=== PATIENT | male | born 1990 | race African-American/Black ===

== ENCOUNTER 2016-10-21 08:59 | Emergency (ER) | payer BC, OTHER ==
[~2016-10-21] VITALS: Ht 185.4 cm; Wt 84.1 kg
[2016-10-21 09:07] VITALS: Ht 185.4 cm; Wt 84.1 kg
[2016-10-21] MEDS ORDERED: PROPARACAINE HCL 0.5% OP SOLN 15 ML BTL ONE (09:12)
--- NOTE | 2016-10-21 10:08 | EMERGENCY ROOM VISIT NOTE ---
History Report prepared by Scott: Vaughn Mancia Under the Supervision of: Dr. Paulo Nevarez M.D. First contact with patient: 09:14 Chief Complaint: EYE ASSESSMENT Stated Complaint: SWOLLEN,PAINFUL W/HEADACHES,LIGHT SENSITIVITY History of Present Illness The patient is a 26 year old male who presents to the Emergency Room with complaints of persistent right eye pain since yesterday. The pain is sharp in nature and is worse with movement of the eye and when he looks directly into light. Looking downwards is more painful than looking up in regards to eye movement. The patient denies any recent injury or trauma to the eye. He cannot recall what he was doing when the pain started. He has glasses for an astigmatism but does not usually wear them. The patient does not follow up with an eye doctor other than to occasionally have his acuity checked. The patient denies any known medical problems. Source of History: patient Onset: yesterday Position: eye (right) Quality: sharp Timing: other (persistent) Modifying Factors (Worsening): movement, other (light) Review of Systems See HPI for pertinent positives & negatives. A total of 10 systems reviewed and were otherwise negative. Past Medical & Surgical Medical Problems: (1) Alcohol intoxication (2) Altered mental status (3) No Known Active Medical Problems Family History Cancer Diabetes mellitus Hypertension Social History Smoking Status: Former Smoker Alcohol Use: occasionally Housing Status: lives with roommate Current/Historical Medications No Active Prescriptions or Reported Meds Allergies Coded Allergies: No Known Allergies (Unverified , 10/21/16) Physical Exam Vital Signs Date Time Temp Pulse Resp B/P Pulse Ox O2 Delivery O2 Flow Rate FiO2 10/21/16 12:21 36.8 59 16 129/77 98 10/21/16 11:12 59 16 129/77 10/21/16 09:07 36.8 67 16 127/84 98 Room Air Right Eye Acuity: 20/70 WITHOUT CORRECTION Left Eye Acuity: 20/30 WITHOUT CORRECTION Physical Exam GENERAL: Patient is a healthy-appearing well-nourished HEAD: Normocephalic atraumatic EYES: Ocular movements intact pupils equal and react to light. See slit lamp examination. OROPHARYNX mucous membranes are moist no exudates present no erythema or edema present NECK: Supple no nuchal rigidity CHEST: Good equal expansion LUNGS: Clear and equal to auscultation CARDIAC: Normal S1 and S2 ABDOMEN: Soft nontender no guarding BACK: No CVA tenderness EXTREMITIES: No pain upon palpation normal muscle strength in all groups no clubbing cyanosis or edema NEURO: Patient is following commands is answering questions appropriately. Alert and oriented x3 Cranial Nerves 2-12 grossly intact Medical Decision & Procedures Medications Administered Medications (Trade) Dose Ordered Sig/Stanford Route Start Time Stop Time Status Last Admin Dose Admin Proparacaine HCl (Alcaine 0.5% Oph Soln) 225 drops STK-MED ONCE .ROUTE 10/21/16 09:12 10/21/16 09:16 DC 10/21/16 09:12 225 DROPS Oxycodone/ Acetaminophen (Percocet 5-325mg Tab) 2 tab NOW STAT PO 10/21/16 10:53 10/21/16 10:54 DC 10/21/16 11:10 2 TAB Procedure Slit Lamp Examination Indication: right eye pain. The right eye was prepped with topical proparacaine. Slit lamp examination was performed in the standard fashion. Cornea appeared normal. Anterior chamber clear. Scleral injection is not present. No discharge present. Fluorescein examination performed and revealed no scratches. No foreign bodies noted. Negative Vanessa sign. The patient tolerated the procedure well without complication. ED Course 0941: Past medical records reviewed. The patient was evaluated in room B4b. A complete history and physical examination was performed. 0950: Slit lamp examination performed. Please see procedural note above. 1053: Percocet 5/325 mg PO homepack. 1100: Reassessed the patient. Discussed the discharge instructions with him. He will follow up with Dr. Crandall. He verbalized understanding. The patient is ready for discharge. Medical Decision Differential: Iritis, uveitis, periorbital cellulitis, corneal abrasion, corneal ulcer. This is a 26-year-old male who presents emergency department complaining of eye pain. The patient has a normal examination on exam however he is complaining of a large amount of pain. Based on this finding he was sent to optho's office. He was given Percocet in the emergency department. Repeat examination revealed improvement the patient's symptoms. Impression Primary Impression: Pain, eye, right Scribe Attestation The scribe's documentation has been prepared under my direction and personally reviewed by me in its entirety. I confirm that the note above accurately reflects all work, treatment, procedures, and medical decision making performed by me. Departure Information Dispostion Home / Self-Care Prescriptions No Active Prescriptions or Reported Meds Referrals No Doctor, Assigned (PCP) Forms HOME CARE DOCUMENTATION FORM, IMPORTANT VISIT INFORMATION, WORK / SCHOOL INSTRUCTIONS Patient Instructions My [facility] Additional Instructions Go directly to DR Crandall's office You have been examined and treated today on an emergency basis only. This is not a substitute for, or an effort to provide, complete comprehensive medical care. It is impossible to recognize and treat all injuries or illnesses in a single emergency department visit. It is therefore important that you follow up closely with your PCP. Call as soon as possible for an appointment. Thank you for your time and consideration. I look forward to speaking with you again soon. Please don't hesitate to call us if you have any questions.
[2016-10-21] MEDS ORDERED: OXYCODONE/ACETAMINOPHEN 5-325 TAB PO STA (10:53)
[2016-10-21 12:21] VITALS: BP 129/77; PULSE 59; TEMP 36.8; O2SAT 98
== END 2016-10-21 12:23 | disposition home or self-care (01) ==
LOC: C.EDB 09:01
DX: H57.11 Ocular pain, right eye (principal); Z87.891 Personal history of nicotine dependence; Z83.3 Family history of diabetes mellitus; Z82.49 Family history of ischemic heart disease and other diseases of the circulatory system

== ENCOUNTER 2016-11-26 19:27 | Emergency (ER) | payer OTHER ==
[~2016-11-26] VITALS: Ht 185.4 cm; Wt 80.8 kg
[2016-11-26 19:31] VITALS: TEMP 36.8; O2SAT 96; Ht 185.4 cm; Wt 80.8 kg
[2016-11-26] MEDS ORDERED: HYDR-5688 PO (20:44)
[2016-11-26] MEDS ORDERED: HYDR25SU6 PR (20:46)
[2016-11-26] MEDS ORDERED: OXYCODONE HCL IR 5 MG TAB (IMMEDIATE RELEASE) PO STA (20:50)
--- NOTE | 2016-11-26 20:52 | EMERGENCY ROOM VISIT NOTE ---
History Report prepared by Scott: Arvind Smith Under the Supervision of: Dr. Juan Lloyd M.D. First contact with patient: 20:40 Chief Complaint: RECTAL BLEEDING Stated Complaint: RECTAL BLEEDING,SEVERE PAIN,BURNING History of Present Illness The patient is a 26 year old male who presents to the Emergency Room with complaints of persistent rectal bleeding that started 5 days ago. Associated symptoms include rectal pain and burning. He rates his discomfort an 8/10 in intensity. Patient also notes that he has had a cough over the past week. The patient was evaluated by his PCP 2 days ago where he was told he likely had thrombosed internal hemorrhoids. PCP was unable to visual these due to rectal swelling, per patient. He was prescribed [place] for pain at this time and told to come in to the ED if pain and bleeding worsens. Patient denies abdominal pain , shortness of breath, constipation, diarrhea, or any additional associated symptoms. Source of History: patient Onset: 5 days ago Position: other (Rectum) Symptom Intensity: 8/10 Timing: other (Persistent) Modifying Factors (Relieving): other (None) Associated Symptoms: No SOB, No abdominal pain, No diarrhea Note: Additional associated symptoms include rectal pain and burning. Review of Systems See HPI for pertinent positives & negatives. A total of 10 systems reviewed and were otherwise negative. Past Medical & Surgical Medical Problems: (1) Alcohol intoxication (2) Altered mental status (3) No Known Active Medical Problems Family History Cancer Diabetes mellitus Hypertension Social History Smoking Status: Current Some Day Smoker Alcohol Use: occasionally Housing Status: lives with roommate Current/Historical Medications Scheduled Docusate Sodium (Colace), 1 CAP PO BID Hydrocortisone Acetate (Rectal (Anucort-Hc), 25 MG MI TID Scheduled PRN Hydrocodone/Acetaminophen 5MG/325MG ([place] 5MG/325MG), 1 TAB PO TID PRN for Pain Oxycodone Immediate Rel Tab (Roxicodone Ir), 1-2 TAB PO Q4H PRN for Severe Pain Allergies Coded Allergies: No Known Allergies (Unverified , 10/21/16) Physical Exam Vital Signs Date Time Temp Pulse Resp B/P Pulse Ox O2 Delivery O2 Flow Rate FiO2 11/26/16 22:56 71 15 125/70 11/26/16 19:31 36.8 108 18 148/78 96 Room Air Physical Exam GENERAL: Patient is uncomfortable appearing but in no acute distress. HEENT: No acute trauma, normocephalic atraumatic, mucous membranes moist, no nasal congestion, no scleral icterus. NECK: No stridor, no adenopathy, no meningismus, trachea is midline. LUNGS: No dyspnea. Clear to auscultation and equal bilaterally. No wheeze, no rhonchi. HEART: Regular rate and rhythm. No murmurs, rubs, gallops appreciated. ABDOMEN: Soft, nontender, bowel sounds positive, no masses appreciated, no peritonitis. BACK: No midline tenderness, no CVA tenderness RECTAL: Large thrombosed hemorrhoid, tender to palpation, oozing blood from anterior aspect. EXTREMITIES: Normal motion all extremities, no cyanosis, no edema. NEUROLOGIC: Alert and oriented, no acute motor or sensory deficits, no focal weakness, cranial nerves grossly intact. SKIN: No rash, no jaundice, no diaphoresis. Medical Decision & Procedures ER Provider Diagnostic Interpretation: X ray results are stated below per my interpretation and the radiologist's interpretation. CHEST ONE VIEW PORTABLE HISTORY: persistent cough COMPARISON: Chest 03/25/2016. FINDINGS: The lungs are clear. Cardiac silhouette is normal in size. No pleural effusions. No pneumothorax. IMPRESSION: No acute process. Electronically signed by: [place] Kendrick M.D. 11/26/2016 9:29 PM Dictated Date/Time: 11/26/2016 9:27 PM Medications Administered Medications (Trade) Dose Ordered Sig/Stanford Route Start Time Stop Time Status Last Admin Dose Admin Oxycodone HCl (Roxicodone Immediate Rel Tab) 5 mg NOW STAT PO 11/26/16 20:50 11/26/16 20:52 DC 11/26/16 21:06 5 MG Nitroglycerin (Nitroglycerin 2% Oint) 1 inch NOW ONCE EXT 11/26/16 21:00 11/26/16 21:01 DC 11/26/16 21:06 1 INCH Lactulose (Chronulac Syrup) 30 gm NOW STAT PO 11/26/16 22:22 11/26/16 22:23 DC 11/26/16 22:55 30 GM Docusate Sodium (coLACE CAP) 100 mg NOW ONCE PO 11/26/16 22:30 11/26/16 22:31 DC 11/26/16 22:55 100 MG ED Course 2040: The patient was evaluated in room A9. A complete history and physical exam was performed. 2049: Ordered Oxycodone HCL 5 mg PO. 2099: Ordered Nitroglycerin 1 inch EXT. 2213: I reevaluated the patient. He is feeling slightly better. 2220: The patient requests help getting set up with general surgery. He states he is feeling a little better at this time. 2221: Ordered Lactulose 30 gm PO. 2225: I discussed the patient's case with case management. They will work to set the patient up with [facility] General surgery. 2230: Ordered Docusate Sodium 100 mg PO. 224: Reevaluated the patient. Discussed results and discharge instructions: He verbalized understanding and agreement. The patient is ready for discharge. Medical Decision Differential: Diverticulitis, AVM, Coagulopathy, Colitis, Malignancy, Upper GI bleed, Fissure, Hemorrhoids, amongst other pathologies entertained. 26 yr old male with large thrombosed hemorrhoid with some mild bleeding from it. He is not septic nor hypotensive. No evidence of surgical abdomen. Persistent cough though notes somewhat improved thus CXR done without any acute findings. 4-5 days of hemorrhoid and I do not feel that opening it would be very helpful. Will defer to surgery and have requested case management help set this up. No indication for emergent OR. Clearly will need pain meds. Continue sitz baths. Stressed need for loose stools thus colace. Impression Primary Impression: Thrombosed external hemorrhoid Scribe Attestation The scribe's documentation has been prepared under my direction and personally reviewed by me in its entirety. I confirm that the note above accurately reflects all work, treatment, procedures, and medical decision making performed by me. Departure Information Dispostion Home / Self-Care Prescriptions Docusate Sodium (COLACE) 100 Mg Cap 1 CAP PO BID for 15 Days, #30 CAP Prov: Juan Lloyd M.D. 11/26/16 Oxycodone Immediate Rel Tab (ROXICODONE IR) 5 Mg Tab 1-2 TAB PO Q4H Y for Severe Pain, #12 TAB Prov: Juan Lloyd M.D. 11/26/16 Referrals Sahil Katz M.D. (PCP) Miguelito Pat M.D. Forms HOME CARE DOCUMENTATION FORM, IMPORTANT VISIT INFORMATION, WORK / SCHOOL INSTRUCTIONS Patient Instructions Hemorrhoids Thrombosed, My [facility] [address] Additional Instructions You will need to follow up with General Surgery for further evaluation of your hemorrhoids. You have received a narcotic pain medication prescription. These medications may cause drowsiness and should not be used with other sedative medications. Do not drive, drink alcohol, perform dangerous activities, nor make important decisions after taking these medications. rodent exterminator use or inappropriate use may lead to addiction.
[2016-11-26] MEDS ORDERED: NITROGLYCERIN OINT 2% 1GM PACKET EXT ONE (21:00)
--- NOTE | 2016-11-26 21:31 | DIAGNOSTIC IMAGING REPORT ---
CHEST ONE VIEW PORTABLE HISTORY: persistent cough COMPARISON: Chest 03/25/2016. FINDINGS: The lungs are clear. Cardiac silhouette is normal in size. No pleural effusions. No pneumothorax. IMPRESSION: No acute process. Electronically signed by: [place] Kendrick M.D. 11/26/2016 9:29 PM Dictated Date/Time: 11/26/2016 9:27 PM
[2016-11-26] MEDS ORDERED: LACTULOSE SYRUP 20 GM/30 ML UDC PO STA (22:22)
[2016-11-26] MEDS ORDERED: DOCU-94 PO (22:24)
[2016-11-26] MEDS ORDERED: OXYC1TAB3 PO (22:24)
[2016-11-26] MEDS ORDERED: DOCUSATE SODIUM 100 MG CAP PO ONE (22:30)
[2016-11-26 22:56] VITALS: BP 125/70; PULSE 71
== END 2016-11-26 23:00 | disposition home or self-care (01) ==
LOC: C.EDB 19:28 → C.EDA 23:00
DX: K64.5 Perianal venous thrombosis (principal); Z82.49 Family history of ischemic heart disease and other diseases of the circulatory system; Z83.3 Family history of diabetes mellitus; F17.200 Nicotine dependence, unspecified, uncomplicated

== ENCOUNTER 2017-04-12 10:48 | Emergency (ER) | payer OTHER ==
[~2017-04-12] VITALS: Ht 185.4 cm; Wt 70.4 kg
[~2017-04-12 10:48] MED LIST: HYDR-5688 PO; HYDR25SU6 PR; OXYC1TAB3 PO
[2017-04-12 11:03] VITALS: PULSE 111; TEMP 36.9; O2SAT 96; Ht 185.4 cm; Wt 70.4 kg
[2017-04-12] MEDS ORDERED: XYLOCAINE 1%/SOD BICARB 20 ML VIAL INFIL ONE (11:45)
--- NOTE | 2017-04-12 11:47 | DIAGNOSTIC IMAGING REPORT ---
LEFT ELBOW MIN 3 VIEWS ROUTINE CLINICAL HISTORY: fell last night, laceration prox ulna COMPARISON: None. DISCUSSION: The bones and joint spaces appear intact. There is no evidence of fracture, dislocation or bony disease. There is no evidence for soft tissue swelling. IMPRESSION: Negative study. The above report was generated using voice recognition software. It may contain grammatical, syntax or spelling errors. Electronically signed by: Lonnie Fleming M.D. 04/12/2017 11:45 AM Dictated Date/Time: 04/12/2017 11:45 AM
[2017-04-12] MEDS ORDERED: CEPH500C PO (12:15)
[2017-04-12] MEDS ORDERED: ACETAMINOPHEN 500 MG TAB PO STA (12:17)
[2017-04-12 12:26] VITALS: BP 118/90
--- NOTE | 2017-04-12 17:57 | EMERGENCY ROOM VISIT NOTE ---
ED Visit Note First contact with patient: 11:16 Chief complaint: Left elbow laceration HPI: This 26-year-old -[place] male presents for evaluation of a laceration on his left elbow that occurred last night. The patient states he believes he fell and landed on the elbow. He was drinking last night. He is not very sure of the circumstances. He is not sure exactly when he fell on. He did not seek treatment last night. Bleeding was controlled with pressure. He denies any numbness, tingling, or loss of motion. Patient states he went and played flag football this morning. He realized how bad the cut was and came in for treatment. He states there is pain over the elbow. No other complaints. Tetanus is believed to be up-to-date. Pain is 6/10. Right-hand dominant. Supplemental sheet was reviewed and signed. Previous surgeries: None Medical history: Benign Current Medications: None Allergies: NKDA Tetanus: Within 10 years Family History: Noncontributory. Parents are living. Social History: Employed. Lives with his parents. Positive tobacco use, positive EtOH use. REVIEW OF SYSTEM: HEENT: No dizziness, visual problems, hearing loss, or tinnitus. There is no difficulty swallowing and no oral lesions are present. PULMONARY: No cough, shortness of breath, sputum production or hemoptysis. CARDIOVASCULAR: No chest pain, palpitations, shortness of breath or peripheral edema. GASTROINTESTINAL: No diarrhea, constipation, nausea, vomiting, or abdominal pain. GENITOURINARY: No dysuria, frequency, urgency or nocturia. NEUROLOGIC: No weakness, muscle tenderness, epilepsy or history of neurological problems. MUSCULOSKELETAL: No history of joint tenderness/swelling. No history of arthritis or arthralgias. SKIN: No rashes or lesions. PSYCHIATRIC: No history of depression or mental illness. ENDOCRINE: No history of diabetes, thyroid disorders, or abnormal hair growth. Physical Exam: Vitals: Afebrile. Reviewed and filed in patient's chart General: Well-developed, well-nourished, young -[place] male, in no acute distress. Obvious discomfort. He is sitting on the bed. Alert and oriented. Skin: Warm and dry with good turgor. No rashes. No ecchymosis or erythema. Mild edema present over the proximal ulna, just distal to the olecranon. He has a 2.5 cm laceration present. It is linear. No visible foreign material. The patient is not diaphoretic. No abrasions. Musculoskeletal: Full flexion and extension of the elbow. Strength is 5/5 for resisted motion. Full supination and pronation. No defect in the triceps tendon. Neurologic: Gross sensation is intact across the forearm and hand by soft touch. Peripheral pulses are 2+. Data: Radiographic imaging obtained today of the elbow was reviewed by me and read by radiology. No evidence for fracture. No elevation of fat pad. No visible foreign body. Impression: Left elbow 2.5 cm laceration Procedure: Informed oral consent was obtained for repair. Left elbow was prepped with Betadine and draped with a sterile towel. Area was anesthetized using 4 mL 1% plain buffered lidocaine in a direct infiltration. Self- retaining retractor's were used. Thorough inspection was performed. Wound was probed. There is no evidence for retained foreign body. He does appear to have violated the bursa. Wound was irrigated copiously using Betadine diluted with normal sterile saline under jet spray lavage. Wound was closed using 4-0 nylon. Excellent wound edge approximation was achieved. Hemostasis was achieved. Plan: Patient was educated regarding today's findings. Conservative care measures were discussed. Cleanse the wound daily with soap and water and reapply a small amount of bacitracin. Ice and elevate intermittently as needed for discomfort. Tylenol and ibuprofen every 6 hours as needed for pain. Wound care handout was provided. Sutures out in 14 days. He may shower. No sports until sutures have been removed. Avoid soaking or swimming for two weeks. Return to the ER for any acute changes or signs of infection. He was provided a prescription for Keflex 500 mg 4 times a day 5 days as a prophylaxis against infection. Patient did receive Tylenol 1 g orally in the ED for pain. Problem List Medical Problems: (1) Alcohol intoxication Status: Resolved (2) Altered mental status Status: Resolved Current/Historical Medications Scheduled Cephalexin Monohydrate (Keflex), 500 MG PO QID Allergies Coded Allergies: No Known Allergies (Unverified , 04/12/17) Vital Signs Date Time Temp Pulse Resp B/P (MAP) Pulse Ox O2 Delivery O2 Flow Rate FiO2 04/12/17 12:26 118/90 04/12/17 11:03 36.9 111 18 115/81 96 Room Air Medications Administered Medications (Trade) Dose Ordered Sig/Stanford Route Start Time Stop Time Status Last Admin Dose Admin Lidocaine HCl (Buffered Lidocaine 1% Inj) 20 ml NOW ONCE INFIL 04/12/17 11:45 04/12/17 11:46 DC 04/12/17 11:52 20 ML Acetaminophen (Tylenol Tab) 1,000 mg NOW STAT PO 04/12/17 12:17 04/12/17 12:18 DC 04/12/17 12:22 1,000 MG Departure Information Impression Primary Impression: Laceration of elbow, left Dispostion Home / Self-Care Condition FAIR Prescriptions Cephalexin Monohydrate (Keflex) 500 Mg Cap 500 MG PO QID, #20 CAP Prov: Wade Fowler,P.A. 04/12/17 Forms HOME CARE DOCUMENTATION FORM, Days to leave dressing on : 1 Clean wound with;: soap and water Number of times/day to clean wound: 2 Coat wound with: antibiotic ointment Suture removal in how many days: 12 MOTRIN USE, TYLENOL USE, WOUND CARE INSTRUCTIONS, IMPORTANT VISIT INFORMATION Patient Instructions My [facility] Additional Instructions Cleanse the wound daily with soap and water Avoid swimming or soaking for 2 weeks you may shower and wash your arm Tylenol and Motrin every 6 hours as needed for discomfort Sutures out in 12 days Apply Ice to the elbow intermittently to reduce pain and swelling Return to the ED for any acute changes or signs of infection Keflex one pill 4 times a day 5 days No sports until the sutures have been removed
== END 2017-04-12 12:28 | disposition home or self-care (01) ==
LOC: C.EDB 10:49 → C.EDD 12:28
DX: S51.012A Laceration without foreign body of left elbow, initial encounter (principal); W19.XXXA Unspecified fall, initial encounter; F17.200 Nicotine dependence, unspecified, uncomplicated

== ENCOUNTER 2017-04-14 19:08 | Emergency (ER) | payer OTHER ==
[~2017-04-14] VITALS: Ht 185.4 cm; Wt 81.6 kg
[~2017-04-14 19:08] MED LIST changes: +CEPH500C PO; -HYDR-5688 PO; -HYDR25SU6 PR; -OXYC1TAB3 PO
[2017-04-14 19:14] VITALS: TEMP 36.9; Ht 185.4 cm; Wt 81.6 kg
[2017-04-14] MEDS ORDERED: HYDROCORTISONE ACETATE 25 MG SUPP PR STA (19:32)
[2017-04-14] MEDS ORDERED: HYDROmorphone INJ 2 MG/ML SYR/VIAL IM STA (19:32)
[2017-04-14] MEDS ORDERED: PROMETHAZINE HCL INJ 25 MG/ML 1 ML VIAL IM STA (19:32)
[2017-04-14] MEDS ORDERED: LIDOCAINE/EPINEPHRINE 1% 20 ML VIAL INFIL STA (19:32)
[2017-04-14] MEDS ORDERED: HYDROCORTISONE HC 2.5% CRM 30GM TUBE EXT STA (19:32)
[2017-04-14] MEDS ORDERED: SENN1TAB77 PO (20:23)
[2017-04-14] MEDS ORDERED: DOCU-94 PO (20:23)
[2017-04-14] MEDS ORDERED: OXYC-57 PO (20:23)
--- NOTE | 2017-04-14 20:34 | EMERGENCY ROOM VISIT NOTE ---
History Report prepared by Scott: Harper Cruz Under the Supervision of: Dr. Paulo Nevarez M.D. First contact with patient: 19:32 Chief Complaint: RECTAL PAIN Stated Complaint: SWOLLEN RECTUM,BLOOD,RECTAL PAIN Nursing Triage Summary: Patient states "I went to the walking clinic for rectal pain. They told me to come in. I have been working out and the pain started about 24 to 36 hours ago." History of Present Illness The patient is a 26 year old male who presents to the Emergency Room with complaints of an episode of rectal pain starting a day ago. He states that he has had a hemorrhoids in the past and the last time was told by surgery that it was too large to handle. He states that this one has gotten bigger and is swollen. He reports that he went to the clinic and was told to come to the ED to have it taken care of. The patient currently rates his pain as a 10/10 in severity. The patient notes it is worse with movement. He complains of hematochezia. Source of History: patient Onset: a day ago Position: other (rectum) Symptom Intensity: 10/10 Quality: other (swollen) Timing: other (episode) Modifying Factors (Worsening): movement Associated Symptoms: + hematochezia Review of Systems See HPI for pertinent positives & negatives. A total of 10 systems reviewed and were otherwise negative. Past Medical & Surgical Medical Problems: (1) Alcohol intoxication (2) Altered mental status (3) Hx of hemorrhoids Family History Cancer Diabetes mellitus Hypertension Social History Smoking Status: Current Every Day Smoker Alcohol Use: occasionally Marital Status: single Housing Status: lives with roommate Current/Historical Medications Scheduled Cephalexin Monohydrate (Keflex), 500 MG PO QID Docusate Sodium (Colace), 1 CAP PO BID Sennosides (Senokot), 8.6 MG PO HS Scheduled PRN Oxycodone/Acetaminophen 5MG/325MG (Percocet 5MG/325MG), 1-2 TAB PO Q4H PRN for Pain Allergies Coded Allergies: No Known Allergies (Unverified , 04/14/17) Physical Exam Vital Signs Date Time Temp Pulse Resp B/P (MAP) Pulse Ox O2 Delivery O2 Flow Rate FiO2 04/14/17 19:14 36.9 84 18 144/84 98 Room Air Physical Exam GENERAL: Patient is a healthy-appearing well-nourished HEAD: Normocephalic atraumatic EYES: Ocular movements intact pupils equal and react to light OROPHARYNX mucous membranes are moist no exudates present no erythema or edema present NECK: Supple no nuchal rigidity CHEST: Good equal expansion LUNGS: Clear and equal to auscultation CARDIAC: Normal S1 and S2 ABDOMEN: Soft nontender no guarding BACK: No CVA tenderness RECTUM: Large thrombosed hemorrhoid. EXTREMITIES: No pain upon palpation normal muscle strength in all groups no clubbing cyanosis or edema NEURO: Patient is following commands and answering questions appropriately. Alert and oriented x3 Cranial Nerves 2-12 grossly intact Medical Decision & Procedures Medications Administered Medications (Trade) Dose Ordered Sig/[place] Route Start Time Stop Time Status Last Admin Dose Admin Hydromorphone HCl (Dilaudid Inj) 2 mg NOW STAT IM 04/14/17 19:32 04/14/17 19:34 DC 04/14/17 20:01 2 MG Promethazine HCl (Phenergan Inj) 25 mg NOW STAT IM 04/14/17 19:32 04/14/17 19:34 DC 04/14/17 20:00 25 MG Procedure Incision & Drainage Indication: Hemorrhoid Location: Rectum Verbal consent was obtained after the risks and benefits were explained, including but not limited to bleeding, scarring, infection, pain, and bone/joint /nerve damage. At this time, the risks of the procedure are less than the risks of NOT performing the procedure. A time out was taken and the correct patient and site identified. The skin was prepped with betadine and a sterile field set. The wound was anesthetized with 7 ml of 1% lidocaine with epinephrine. The hemorrhoid cavity was entered with a number 11 blade and 2 large blood clots expressed. Copious irrigation was performed using normal saline solution. The wound was explored for foreign bodies and none found. Debridement was not performed. A sterile dressing applied. Detailed wound care instructions and signs and symptoms of worsening infection reviewed with the patient. No complications and the patient tolerated the procedure well. ED Course 1931: Ordered Hydrocortisone 1 appln EXT, Hydrocortisone Acetate 25 mg KS, Lidocaine/ Epinephrine 20 ml INFIL, Phenergan Inj 25 mg IM, Dilaudid Inj 2 mg IM. 1934: Past medical records reviewed. The patient was evaluated in room B10. A complete history and physical examination was performed. 2020:Upon reexamination the patient is doing better. I discussed results and treatment plan with the patient. He verbalizes agreement and understanding. The patient is ready for discharge. Medical Decision This is a 26-year-old male who presents emergency department for hemorrhoid excision. This was done as above. The patient was given Dilaudid for pain control. Repeat examination revealed improvement patient's symptoms. I will place the patient on hydrocortisone cream and encouraged follow-up with surgery. He will also be placed on stool softeners. Patient was in agreement with the treatment plan. Impression Primary Impression: Thrombosed external hemorrhoid Scribe Attestation The scribe's documentation has been prepared under my direction and personally reviewed by me in its entirety. I confirm that the note above accurately reflects all work, treatment, procedures, and medical decision making performed by me. Departure Information Dispostion Home / Self-Care Prescriptions Docusate Sodium (COLACE) 100 Mg Cap 1 CAP PO BID for 10 Days, #20 CAP Prov: Paulo Nevarez MD 04/14/17 Sennosides (SENOKOT) 8.6 Mg Tab 8.6 MG PO HS for 10 Days, #10 TAB Prov: Paulo Nevarez MD 04/14/17 Oxycodone/Acetaminophen 5MG/325MG (PERCOCET 5MG/325MG) Tab 1-2 TAB PO Q4H Y for Pain, #14 TAB Prov: Paulo Nevarez MD 04/14/17 Referrals No Doctor, Assigned (PCP) Forms HOME CARE DOCUMENTATION FORM, IMPORTANT VISIT INFORMATION, WORK / SCHOOL INSTRUCTIONS Patient Instructions My [facility] Additional Instructions Follow up with DR Rogers's office Use Cream twice daily You received narcotic or benzodiazepene medication while in the emergency room today. This is an addictive medication that may cause drowziness as well as constipation. Do not drive, operate heavy machinery, or drink alcohol under the influence of this medication. Take 600 mg Ibuprofen every 6 hours Take Percocet for breakthrough pain You have been examined and treated today on an emergency basis only. This is not a substitute for, or an effort to provide, complete comprehensive medical care. It is impossible to recognize and treat all injuries or illnesses in a single emergency department visit. It is therefore important that you follow up closely with Dr Wilson. Call as soon as possible for an appointment. Thank you for your time and consideration. I look forward to speaking with you again soon. Please don't hesitate to call us if you have any questions.
[2017-04-14 20:41] VITALS: BP 143/85; PULSE 80; O2SAT 97
== END 2017-04-14 20:41 | disposition home or self-care (01) ==
LOC: C.EDB 19:10
DX: K64.5 Perianal venous thrombosis (principal); F17.200 Nicotine dependence, unspecified, uncomplicated; Z79.899 Other long term (current) drug therapy; Z80.9 Family history of malignant neoplasm, unspecified; Z83.3 Family history of diabetes mellitus; Z82.49 Family history of ischemic heart disease and other diseases of the circulatory system

== ENCOUNTER → 2017-05-15 | Outpatient (CLI) | payer OTHER ==
[~2017-05-15] MED LIST changes: +OXYC-57 PO
== END | disposition home or self-care (01) ==
LOC: C.LAB 02:51
DX: Z02.83 Encounter for blood-alcohol and blood-drug test (principal)

== ENCOUNTER 2017-06-15 10:14 | Emergency (ER) | payer OTHER ==
[~2017-06-15] VITALS: Ht 185.4 cm; Wt 79.0 kg
[2017-06-15 10:21] VITALS: TEMP 37.3; Ht 185.4 cm; Wt 79.0 kg
[2017-06-15] MEDS ORDERED: DEXAMETHASONE INJ 10 MG in SYRINGE 0 ML IV STA (11:22)
[2017-06-15] MEDS ORDERED: KETOROLAC TROMETHAMINE 30 MG/ML VIAL IV STA (11:22)
[2017-06-15] MEDS ORDERED: AMOX500T3 PO (11:26)
[2017-06-15 11:38] VITALS: BP 137/82; PULSE 67; O2SAT 100
--- NOTE | 2017-06-15 15:56 | EMERGENCY ROOM VISIT NOTE ---
History First contact with patient: 10:49 Chief Complaint: FLU LIKE SX Stated Complaint: PAINFUL SWOLLEN LYMPH NODES,PAINFUL GUMS,TEETH,FLU History of Present Illness The patient is a 26 year old male who presents to the Emergency Room with complaints of painful gums, neck lymph nodes and a mild nonproductive cough that started yesterday. The patient reports no headache, neck pain, significant sinus congestion or runny nose. He denies any known sick contacts. He has not taken any medications for his discomfort, and rates his discomfort a 9 out of 10. Review of Systems 10 system review was performed and was negative except for pertinent positives and negatives as indicated in history of present illness Past Medical/Surgical History Medical Problems: (1) Alcohol intoxication (2) Altered mental status (3) Hx of hemorrhoids Family History Cancer Diabetes mellitus Hypertension Social History Smoking Status: Current Every Day Smoker Alcohol Use: occasionally Marital Status: single Housing Status: lives with roommate Current/Historical Medications Scheduled Amoxicillin (Amoxil), 1 TAB PO TID Physical Exam Vital Signs Date Time Temp Pulse Resp B/P (MAP) Pulse Ox O2 Delivery O2 Flow Rate FiO2 06/15/17 11:38 67 20 137/82 100 Room Air 06/15/17 10:21 37.3 94 18 148/80 97 Physical Exam CONSTITUTIONAL: Healthy and well nourished. Alert and oriented X 3 with positive affect. HEENT: Normocephalic, atraumatic. Pupils equal, round and reactive. Examination of the ears does not show any TM erythema or air-fluid levels. No rhinorrhea noted. No scleral icterus or conjunctival injection. OROPHARYNX: Minimal posterior pharyngeal erythema without tonsillar hypertrophy or exudates. The patient has mild right maxillary gingival erythema without fluctuance, pointing or vesicular lesions. NECK: Full active range of motion without discomfort. No nuchal rigidity. LYMPHATICS: No anterior or posterior cervical adenopathy appreciated. RESPIRATORY: Clear to auscultation bilaterally with no wheezing, crackles, rhonchi or stridor. CARDIOVASCULAR: Regular rate and rhythm with no murmurs, rubs or gallops. GASTROINTESTINAL: Bowel sounds present in all quadrants. Soft and nontender to palpation. MUSCULOSKELETAL: Full range of motion of all joints without discomfort. INTEGUMENTARY: No rash or other significant dermatologic conditions noted. NEUROLOGIC: No focal neurologic deficits noted. Medical Decision & Procedures Medications Administered Medications (Trade) Dose Ordered Sig/[place] Route Start Time Stop Time Status Last Admin Dose Admin Ketorolac Tromethamine (Toradol Inj) 30 mg NOW STAT IV 06/15/17 11:22 06/15/17 11:26 DC 06/15/17 11:37 30 MG Dexamethasone Sodium Phosphate 10 mg/Syringe 2.5 ml @ 1 mls/min ONE STAT IV 06/15/17 11:22 06/15/17 11:26 DC 06/15/17 11:37 1 MLS/MIN ED Course Patient history and physical exam were performed. Nurse's notes were reviewed. Vital signs were reviewed and were also normal. The patient is afebrile and not tachycardic. O2 saturation is 97% on room air. Exam shows only mild findings suggestive of viral upper respiratory infection. The patient was advised that antibiotics do not help with viral infections. He is concerned that he is developing a dental infection. He was advised that his additional symptoms are not consistent with dental infection; however, the patient was provided a prescription for amoxicillin. The patient was again instructed that amoxicillin will not kill viral infections, and should be reserved only if he has worsening redness of the gingiva. He was encouraged to alternate ibuprofen and Tylenol as needed for pain. Follow-up with family doctor if symptoms are not improving within the next week. The patient was happy with plan of care, voiced understanding of all discharge instructions, and rated his overall discomfort a 7 out of 10 at the time of discharge. The patient was administered IV Decadron and Toradol prior to discharge. Medical Decision Blood Pressure Screening Patient's blood pressure: Normal blood pressure Impression Primary Impression: Viral upper respiratory infection Departure Information Dispostion Home / Self-Care Condition GOOD Prescriptions Amoxicillin (AMOXIL) 500 Mg Tab 1 TAB PO TID for 10 Days, #30 TAB Prov: Umair Hurtado PA 06/15/17 Referrals Sahil Katz M.D. (PCP) No Doctor, Assigned Forms HOME CARE DOCUMENTATION FORM, IMPORTANT VISIT INFORMATION Patient Instructions My [facility] Additional Instructions Her symptoms are likely secondary to a viral infection which will not respond to antibiotics. Ibuprofen 800 mg and/or Tylenol 1000 mg every 8 hours. You may also alternate these medications for more effective pain relief: Ibuprofen --4 HRS--> Tylenol --4 HRS--> ibuprofen --4 HRS--> Tylenol .... If the swelling around the tooth worsens with redness and itch, start amoxicillin antibiotics as prescribed. Suggest follow-up with your PCP if symptoms are not improving within the next 5- 7 days. FOR WORK: Please excuse from work today, Thursday06/15/17.
== END 2017-06-15 11:50 | disposition home or self-care (01) ==
LOC: C.EDB 10:15 → C.EDA 11:50
DX: J06.9 Acute upper respiratory infection, unspecified (principal); F17.200 Nicotine dependence, unspecified, uncomplicated; Z83.3 Family history of diabetes mellitus; Z82.49 Family history of ischemic heart disease and other diseases of the circulatory system